=== PATIENT | female | born 1985 | race Caucasian/White ===

== ENCOUNTER → 2017-03-26 | Outpatient (CLI) | payer MEDICAID, OTHER ==
[~2017-03-26] MED LIST: PREN0.01 PO
== END ==
LOC: HPND 08:36
PROVIDERS: ATTEND Obstetrics & Gynecology
DX: O35.8XX0 Maternal care for other (suspected) fetal abnormality and damage, not applicable or unspecified (principal); Z36.2 Encounter for other antenatal screening follow-up
CPT/HCPCS: 76811